=== PATIENT | male | born 1945 | race Hispanic/Latino ===

== ENCOUNTER → 2018-03-07 | Outpatient (CLI) | payer OTHER | END | disposition home or self-care (01) | LOC: OIH 11:00 | PROVIDERS: ATTEND Family Medicine | DX: M17.0 Bilateral primary osteoarthritis of knee (principal) | CPT/HCPCS: 73560 ==

== ENCOUNTER 2023-01-19 06:45 | Day surgery (SDC) | payer OTHER, MEDICARE ==
[2023-01-17 11:26] LABS: BASOPHILS % (AUTO) 0.9 % (0.0-5.0); EOSINOPHILS % (AUTO) 2.4 % (0.0-8.0); HEMATOCRIT 44.8 % (42-54); LYMPHOCYTES % (AUTO) 17.6 % (21.0-51.0); MEAN CORPUSCULAR HEMOGLOBIN 31.9 pg (27.0-33.0); MEAN CORPUSCULAR HGB CONC 33.7 g/dL (32.0-36.0); MEAN CORPUSCULAR VOLUME 94.5 fL (79-99); MONOCYTES % (AUTO) 11.1 % (3.0-13.0); NEUTROPHILS % (AUTO) 67.7 % (40.0-77.0); PLATELET COUNT (AUTO) 190 K/uL (130-400); RED BLOOD CELL COUNT(AUTO) 4.74 MIL/uL (4.50-6.20); RED CELL DISTRIBUTION WIDTH 13.7 % (11.0-15.5); WHITE BLOOD COUNT (AUTO) 7.6 K/uL (4.8-10.8)
[2023-01-17 11:38] LABS: CREATININE 1.4 mg/dL (0.5-1.5)
[2023-01-17 12:03] VITALS: BP 166/88
[2023-01-19] VITALS (17 sets, daily range): BP systolic 135–183; BP diastolic 63–96
[~2023-01-19] VITALS: Ht 182.9 cm; Wt 112.0 kg
[~2023-01-19 06:45] MED LIST: ATOR20TA65 PO; LISI1TAB53 PO; METF-444 PO
[2023-01-19] MEDS ORDERED: 0.9%NACL 1000ML 1,000 ML IV ONE (07:05)
[2023-01-19] MEDS ORDERED: CEFTRIAXONE 1G VIAL ONE (07:05)
[2023-01-19] MEDS ORDERED: GLYCOPYRROLATE 1 MG/5 ML SYRINGE ONE (08:27)
[2023-01-19] MEDS ORDERED: ROCURONIUM 10MG/1ML SYR 10 MG/ML ML ONE (08:27)
[2023-01-19] MEDS ORDERED: LIDOCAINE PF 100MG/5ML (2%) SYRINGE 5ML ONE (08:27)
[2023-01-19] MEDS ORDERED: PROPOFOL 10 MG/ML 20ML VIAL IV ONE (08:28)
[2023-01-19] MEDS ORDERED: FENTANYL CITRATE PF 50 MCG/1 ML 2ML VIAL ONE ×3 (08:28→09:45)
[2023-01-19] MEDS ORDERED: CEFTRIAXONE 1G VIAL IVPB ONE (08:31)
[2023-01-19] MEDS ORDERED: NEOSTIGMINE 5MG/5ML SYR IV ONE (08:55)
[2023-01-19] MEDS ORDERED: ONDANSETRON 4MG INJ ONE (08:55)
[2023-01-19] MEDS ORDERED: HYDRALAZINE 20MG/ML VIAL ONE (09:05)
[2023-01-19] MEDS ORDERED: HYDROMORPHONE 1 MG INJ ONE (11:01)
[2023-01-19] MEDS ORDERED: PHENAZOPYRIDINE HCL 200 MG TABLET ONE (11:44)
== END 2023-01-19 12:20 | disposition home or self-care (01) ==
LOC: DAH 06:45
PROVIDERS: ATTEND Urology
DX: N21.0 Calculus in bladder (principal); I10 Essential (primary) hypertension; E78.5 Hyperlipidemia, unspecified; Z90.49 Acquired absence of other specified parts of digestive tract; Z98.890 Other specified postprocedural states; Z20.822 Contact with and (suspected) exposure to COVID-19; Z79.899 Other long term (current) drug therapy
CPT/HCPCS: 80048; 85025; 87426; 36415 ×2; 93005; 52318; 82948 ×2; 82360; A6260; A4663; J7120; A4354; C1758; J3010 ×3; J1170; J3490; J2710; J7030; J2001; J0360; J0696 ×2; J2704; J2405; A4358; A4215; A4223; A4222; A4221; A4510; A4600

== ENCOUNTER 2023-01-22 20:32 | Emergency (ER) | payer OTHER, MEDICARE ==
[~2023-01-22] VITALS: Ht 177.8 cm; Wt 113.4 kg
[2023-01-22] MEDS ORDERED: TAMSULOSIN HCL 0.4 MG CAP.ER.24H PO SCH (21:00)
[2023-01-22] MEDS ORDERED: TAMS-1 PO (21:07)
[2023-01-22 21:48] VITALS: BP 162/74
== END 2023-01-22 21:51 | disposition home or self-care (01) ==
LOC: EDH 20:32
DX: R33.9 Retention of urine, unspecified (principal); I10 Essential (primary) hypertension; E11.9 Type 2 diabetes mellitus without complications; E78.00 Pure hypercholesterolemia, unspecified; Z87.442 Personal history of urinary calculi; Z79.84 Long term (current) use of oral hypoglycemic drugs; Z79.899 Other long term (current) drug therapy
CPT/HCPCS: 51702